=== PATIENT | male | born 1970 ===

== ENCOUNTER 2023-10-27 23:45 | Inpatient (IN) | payer MEDICAID ==
[~2023-10-27] VITALS: Ht 167.6 cm; Wt 104.0 kg
[2023-10-28 00:31] LABS: GLUCOMETER DEV NAME(LOC) POC.BV; POC SARS-COV2 AG, FIA NEGATIVE (NEGATIVE)
[2023-10-28 01:41] LABS: GLUCOMETER DEV NAME(LOC) BV3N.; GLUCOSE,POINT OF CARE 280 MG/DL (70-110)
[2023-10-28] MEDS: ZOLPIDEM TARTRATE 10 MG TABLET PO PRN (02:08)
[2023-10-28 02:48] VITALS: BP 129/90; PULSE 66; RESP 18; TEMP 96.8; O2SAT 99
[2023-10-28] MEDS ORDERED: GLUCAGON,HUMAN RECOMBINANT 1 MG VIAL IM PRN (06:15)
[2023-10-28 06:40] LABS: GLUCOMETER DEV NAME(LOC) BV3N.; GLUCOSE,POINT OF CARE 137 MG/DL (70-110)
[2023-10-28] MEDS ORDERED: CloNIDine HCL 0.1 MG TABLET PO PRN (07:00)
[2023-10-28] MEDS ORDERED: DOCUSATE SODIUM 100 MG CAPSULE PO PRN (07:00)
[2023-10-28] MEDS ORDERED: LOPERAMIDE HCL 2 MG CAPSULE PO PRN (07:00)
[2023-10-28] MEDS ORDERED: ACETAMINOPHEN 325 MG TABLET PO PRN (07:00)
[2023-10-28] MEDS ORDERED: PETROLATUM,WHITE 28 GM JELLY TP PRN (07:00)
[2023-10-28] MEDS ORDERED: MAGNESIUM HYDROXIDE SUSPENSION 30 ML UDCUP PO PRN (07:00)
[2023-10-28] MEDS ORDERED: ONDANSETRON HCL 4 MG TABLET PO PRN (07:00)
[2023-10-28] MEDS ORDERED: NICOTINE 14 MG/24 HOUR PATCH TD PRN (07:00)
[2023-10-28] MEDS ORDERED: ALBUTEROL SULFATE HFA 90 MCG/PUFF 8 GM INHALER IH PRN (07:00)
[2023-10-28] MEDS ORDERED: MAG HYDROX/ALUMINUM HYD/SIMETH ES 30 ML SUSPENSION UDCUP PO PRN (07:00)
[2023-10-28] MEDS ORDERED: GuaiFENesin/D-METHORPHAN [SUGAR-FREE] 200-20MG/10 ML SYRUP UDCUP PO PRN (07:00)
[2023-10-28 08:13] LABS: BASOPHILS % (AUTO) 0.5 % (0.0-2.0); EOSINOPHILS % (AUTO) 5.4 % (1.0-6.0); HEMATOCRIT 36.1 % (41-53); HEMOGLOBIN 12.2 g/dL (13.5-17.5); LYMPHOCYTES # (AUTO) 1.6 K/uL (1.0-4.8); LYMPHOCYTES % (AUTO) 23.8 % (22.0-44.0); MEAN CORPUSCULAR HEMOGLOBIN 35.8 pg (26.0-34.0); MEAN CORPUSCULAR HGB CONC 33.7 G/dL (31.0-37.0); MEAN CORPUSCULAR VOLUME 106 fL (80-100); MONOCYTES # (AUTO) 0.4 K/uL (0.1-1.0); MONOCYTES % (AUTO) 6.1 % (2.0-9.0); NEUTROPHILS # (AUTO) 4.4 K/uL (1.8-7.7); NEUTROPHILS % (AUTO) 64.2 % (40.0-70.0); PLATELET COUNT (AUTO) 247 K/uL (150-450); RED CELL DISTRIBUTION WIDTH 13.1 % (11.5-14.5); WHITE BLOOD COUNT (AUTO) 6.9 K/uL (4.5-11.0)
[2023-10-28 08:18] LABS: HEMOGLOBIN A1C 6.7 % (3.8-5.6)
[2023-10-28 08:20] VITALS: BP 148/76; PULSE 70; RESP 18; TEMP 97.3; O2SAT 98
[2023-10-28 08:40] LABS: ALANINE AMINOTRANSFERASE 32 U/L (12-78); ALBUMIN 3.5 g/dL (3.4-5.0); ALKALINE PHOSPHATASE 188 U/L (46-116); ANION GAP 10 mmol/L (8-16); ASPARTATE AMINOTRANSFERASE 16 U/L (15-37); BILIRUBIN,TOTAL 0.4 mg/dL (0.1-1.0); CALCIUM, TOTAL 9.2 mg/dL (8.8-10.5); CARBON DIOXIDE 24 mmol/L (22-29); CHLORIDE 101 mmol/L (98-107); CHOL/HDL RATIO 2.5 (4.2-7.3); CHOLESTEROL 149 mg/dL (131-200); CREATININE 1.05 mg/dL (0.60-1.30); FREE T4 (FREE THYROXINE) 0.79 ng/dL (0.76-1.46); GLOMERULAR FILTR. RATE CALC > 60 mL/min (>60); GLUCOSE,RANDOM 156 mg/dL (70-110); HDL CHOLESTEROL 60 mg/dL (40-60); LDL CHOL (CALC.) 68 mg/dL (0-130); POTASSIUM 4.4 mmol/L (3.5-5.1); SODIUM SERUM 135 mmol/L (136-145); THYROID STIMULATING HORMONE 0.93 uIU/mL (0.36-3.74); TRIGLYCERIDES 105 mg/dL (15-150); UREA NITROGEN, BLOOD 14 mg/dL (7-18)
[2023-10-28 08:42] LABS: RBC MORPHOLOGY COMMENT ABNORMAL RBC MORPH
[2023-10-28] MEDS: LORazepam 2 MG TABLET PO PRN (08:54)
[2023-10-28] MEDS: HALOPERIDOL 5 MG TABLET PO PRN (08:54)
[2023-10-28] MEDS: GABAPENTIN 300 MG CAPSULE PO SCH (10:00)
[2023-10-28 11:03] LABS: VALPROIC ACID 37 mcg/mL (50-100)
[2023-10-28] MEDS: INSULIN LISPRO 100 UNITS/ML SQ PRN (11:57)
[2023-10-28 13:40] LABS: GLUCOMETER DEV NAME(LOC) BV3N.; GLUCOSE,POINT OF CARE 205 MG/DL (70-110)
[2023-10-28] MEDS: BENZTROPINE MESYLATE 2 MG TABLET PO SCH (16:12)
[2023-10-28 16:50] LABS: GLUCOMETER DEV NAME(LOC) BV3N.; GLUCOSE,POINT OF CARE 240 MG/DL (70-110)
[2023-10-28 20:19] VITALS: BP 152/70; PULSE 70; RESP 16; TEMP 97.6; O2SAT 100
[2023-10-28] MEDS: DIVALPROEX SODIUM 500 MG DR TABLET PO SCH (20:46)
[2023-10-28] MEDS: LITHIUM CARBONATE 600 MG CAPSULE PO SCH (20:46)
[2023-10-28] MEDS: OLANZapine 5 MG RAPDIS TABLET PO SCH (20:46)
[2023-10-28] MEDS: TraZODone HCL 100 MG TABLET PO SCH (20:47)
[2023-10-28] MEDS: QUEtiapine FUMARATE 50 MG ER TABLET PO SCH (20:47)
[2023-10-28 23:41] LABS: GLUCOMETER DEV NAME(LOC) BV3S.; GLUCOSE,POINT OF CARE 187 MG/DL (70-110)
[2023-10-29 06:15] LABS: GLUCOMETER DEV NAME(LOC) BV3N.; GLUCOSE,POINT OF CARE 135 MG/DL (70-110)
[2023-10-29 08:13] VITALS: BP 142/72; PULSE 85; RESP 18; TEMP 97.8; O2SAT 98
[2023-10-29 09:15] LABS: CHOL/HDL RATIO 2.4 (4.2-7.3); THYROID STIMULATING HORMONE 0.7 uIU/mL (0.36-3.74)
[2023-10-29 09:28] LABS: HEMOGLOBIN A1C 6.9 % (3.8-5.6)
[2023-10-29 12:00] LABS: GLUCOMETER DEV NAME(LOC) BV3N.; GLUCOSE,POINT OF CARE 155 MG/DL (70-110)
[2023-10-29 20:29] VITALS: BP 129/77; PULSE 81; RESP 17; TEMP 97; O2SAT 98
[2023-10-30] MEDS ORDERED: LORazepam 2 MG/ML VIAL ONE (09:20)
[2023-10-30] MEDS ORDERED: HALOPERIDOL LACTATE 5 MG/ML VIAL ONE (09:20)
[2023-10-30] MEDS ORDERED: DiphenhydrAMINE HCL 50 MG/ML VIAL ONE (09:20)
[2023-10-30] MEDS: DiphenhydrAMINE HCL 50 MG/ML VIAL IM ONE (09:38)
[2023-10-30] MEDS: HALOPERIDOL LACTATE 5 MG/ML VIAL IM ONE (09:39)
[2023-10-30] MEDS: LORazepam 2 MG/ML VIAL IM ONE (09:39)
[2023-10-30 20:23] VITALS: BP 126/77; PULSE 70; RESP 18; TEMP 98.1; O2SAT 96
[2023-10-31] MEDS: HALOPERIDOL LACTATE 5 MG/ML VIAL IM ONE (08:27)
[2023-10-31] MEDS: LORazepam 2 MG/ML VIAL IM ONE (08:27)
[2023-10-31] MEDS: DiphenhydrAMINE HCL 50 MG/ML VIAL IM ONE (08:27)
[2023-10-31 08:39] LABS: ANION GAP 9 mmol/L (8-16); CALCIUM, TOTAL 9.1 mg/dL (8.8-10.5); CARBON DIOXIDE 26 mmol/L (22-29); CHLORIDE 104 mmol/L (98-107); CREATININE 1.19 mg/dL (0.60-1.30); GLOMERULAR FILTR. RATE CALC > 60 mL/min (>60); GLUCOSE,RANDOM 182 mg/dL (70-110); POTASSIUM 4.7 mmol/L (3.5-5.1); SODIUM SERUM 139 mmol/L (136-145); UREA NITROGEN, BLOOD 24 mg/dL (7-18)
[2023-10-31 08:48] VITALS: RESP 18
[2023-10-31 20:24] VITALS: BP 127/61; PULSE 90; TEMP 96.6; O2SAT 97
[2023-11-01 08:27] VITALS: BP 135/76; PULSE 89; RESP 18; TEMP 97.6; O2SAT 95
[2023-11-01 20:21] VITALS: BP 138/76; PULSE 91; TEMP 96.6; O2SAT 98
[2023-11-02 08:06] LABS: APPEARANCE,URINE CLEAR (CLEAR); BILIRUBIN,URINE NEGATIVE (NEGATIVE); COLOR,URINE LIGHT YELLOW (YELLOW); GLUCOSE, URINE (UA) TRACE mg/dL (NEGATIVE); KETONES,URINE NEGATIVE (NEGATIVE); LEUKOCYTE ESTERASE ,URINE NEGATIVE (NEGATIVE); NITRATE,URINE NEGATIVE (NEGATIVE); OCCULT BLOOD,URINE NEGATIVE (NEGATIVE); PROTEIN,URINE NEGATIVE (NEGATIVE); SPECIFIC GRAVITIY, URINE 1.016 (1.003-1.030); UROBILINOGEN,URINE <=1.0 mg/dL (<=1.0)
[2023-11-02 08:14] LABS: ALCOHOL, URINE DRUG SCREEN NEGATIVE (NEGATIVE); AMPHET/METH SCREEN,URINE NEGATIVE (NEGATIVE); BARBITURATE SCREEN, URINE NEGATIVE (NEGATIVE); BENZODIAZEPINES SCREEN,URINE NEGATIVE (NEGATIVE); CANNABINOID SCREEN,URINE NEGATIVE (NEGATIVE); COCAINE SCREEN,URINE NEGATIVE (NEGATIVE); METHADONE SCREEN, URINE NEGATIVE (NEGATIVE); OPIATE SCREEN,URINE NEGATIVE (NEGATIVE); PHENCYCLIDINE SCREEN,URINE NEGATIVE (NEGATIVE)
[2023-11-02 08:35] LABS: BACTERIA,URINE None Seen /HPF (None Seen); RBC,URINE None Seen /HPF (0-2); WBC,URINE None Seen /HPF (0-5)
[2023-11-02 08:37] VITALS: BP_SYST 125; BP_SYST 133; BP_DIAS 73; BP_DIAS 86; PULSE 85; RESP 18; TEMP 97.7; O2SAT 94
[2023-11-02 11:51] LABS: GLUCOMETER DEV NAME(LOC) BV3N.; GLUCOSE,POINT OF CARE 295 MG/DL (70-110)
[2023-11-02 20:21] VITALS: BP 125/53; PULSE 70; TEMP 98.2; O2SAT 98
[2023-11-03] MEDS: IBUPROFEN 400 MG TABLET PO PRN (05:35)
[2023-11-03] MEDS: PNEUMOCOCCAL VACCINE POLYVALENT 0.5 ML SYRINGE [PPSV23] IM. ONE (06:00)
[2023-11-03] MEDS: MetFORMIN HCL 500 MG TABLET PO SCH (06:34)
[2023-11-03 06:36] LABS: GLUCOMETER DEV NAME(LOC) BV3N.; GLUCOSE,POINT OF CARE 169 MG/DL (70-110)
[2023-11-03 08:33] VITALS: BP 137/79; PULSE 89; RESP 18; TEMP 97.8; O2SAT 98
[2023-11-03 11:16] LABS: GLUCOMETER DEV NAME(LOC) BV3N.; GLUCOSE,POINT OF CARE 205 MG/DL (70-110)
[2023-11-03 16:21] LABS: GLUCOMETER DEV NAME(LOC) BV3N.; GLUCOSE,POINT OF CARE 280 MG/DL (70-110)
[2023-11-03 20:23] VITALS: BP 132/72; PULSE 70; TEMP 96.8; O2SAT 98
[2023-11-03 20:56] LABS: GLUCOMETER DEV NAME(LOC) BV3N.; GLUCOSE,POINT OF CARE 220 MG/DL (70-110)
[2023-11-04 06:30] LABS: GLUCOMETER DEV NAME(LOC) BV3N.; GLUCOSE,POINT OF CARE 166 MG/DL (70-110)
[2023-11-04 08:26] VITALS: BP 125/80; PULSE 86; RESP 18; TEMP 97.9; O2SAT 96
[2023-11-04 20:08] VITALS: BP 127/64; PULSE 94; RESP 20; TEMP 97.9; O2SAT 100
[2023-11-05 06:16] LABS: GLUCOMETER DEV NAME(LOC) BV3N.; GLUCOSE,POINT OF CARE 210 MG/DL (70-110)
[2023-11-05 08:46] VITALS: BP 149/94; PULSE 77; RESP 19; TEMP 98.4; O2SAT 97
[2023-11-05 16:35] LABS: GLUCOMETER DEV NAME(LOC) BV3N.; GLUCOSE,POINT OF CARE 330 MG/DL (70-110)
[2023-11-05 20:43] VITALS: BP 134/78; PULSE 70; RESP 18; TEMP 98; O2SAT 97
[2023-11-05 20:46] LABS: GLUCOMETER DEV NAME(LOC) BV3N.; GLUCOSE,POINT OF CARE 169 MG/DL (70-110)
[2023-11-06 06:15] LABS: GLUCOMETER DEV NAME(LOC) BV3N.; GLUCOSE,POINT OF CARE 161 MG/DL (70-110)
[2023-11-06 08:36] VITALS: BP 137/85; PULSE 85; RESP 16; TEMP 96.8; O2SAT 95
[2023-11-06] MEDS: MetFORMIN HCL 850 MG TABLET PO SCH (16:19)
[2023-11-06] MEDS: INSULIN LISPRO 100 UNITS/ML SQ ONE (16:23)
[2023-11-06 17:15] LABS: GLUCOMETER DEV NAME(LOC) BV3N.; GLUCOSE,POINT OF CARE 401 MG/DL (70-110)
[2023-11-06 20:28] VITALS: BP 143/80; PULSE 82; TEMP 97.3; O2SAT 97
[2023-11-06 21:10] LABS: GLUCOMETER DEV NAME(LOC) BV3N.; GLUCOSE,POINT OF CARE 161 MG/DL (70-110)
[2023-11-07 05:15] LABS: GLUCOMETER DEV NAME(LOC) BV3N.; GLUCOSE,POINT OF CARE 185 MG/DL (70-110)
[2023-11-07 08:09] VITALS: BP 134/73; PULSE 85; RESP 18; TEMP 98.1; O2SAT 96
[2023-11-07] MEDS ORDERED: DIVA-112 PO (10:26)
[2023-11-07] MEDS ORDERED: GABA-1181 PO (10:26)
[2023-11-07] MEDS ORDERED: TRAZ-257 PO (10:26)
[2023-11-07] MEDS ORDERED: OLAN5TAB94 PO (10:26)
[2023-11-07] MEDS ORDERED: LITH600C PO (10:26)
[2023-11-07] MEDS ORDERED: BENZ2TAB71 PO (10:26)
[2023-11-07] MEDS ORDERED: QUET50TA93 PO (10:26)
== END 2023-11-07 17:15 | disposition home or self-care (01) | DRG 750 ==
LOC: B3A 23:54
PROVIDERS: ADMIT Psychiatry & Neurology Child & Adolescent Psychiatry; ATTEND Psychiatry & Neurology Child & Adolescent Psychiatry
PROC: GZHZZZZ Group Psychotherapy (ICD-10-PCS; principal; 2023-10-28)
PROC: GZ52ZZZ Individual Psychotherapy, Cognitive (ICD-10-PCS; 2023-10-28)
DX: F20.0 Paranoid schizophrenia (principal); E87.1 Hypo-osmolality and hyponatremia; F79 Unspecified intellectual disabilities; E11.65 Type 2 diabetes mellitus with hyperglycemia; D64.9 Anemia, unspecified; E66.9 Obesity, unspecified; Z20.822 Contact with and (suspected) exposure to COVID-19; Z68.37 Body mass index [BMI] 37.0-37.9, adult
CPT/HCPCS: 80048; 80053; 80061; 80164; 80178; 80307; 81001; 82140; 82962; 83036; 84439; 84443; 85025; J1200; J1630; J1815; J2060